=== PATIENT | female | born 1950 ===

== ENCOUNTER 2021-02-03 21:35 | Emergency (ER) | payer OTHER ==
[~2021-02-03] VITALS: Ht 157.5 cm; Wt 81.6 kg
[2021-02-03 21:37] VITALS: BP 100/69
[2021-02-03] MEDS ORDERED: methylPREDNISolone SOD SUCC 125 MG/2 ML VL IM ONE (22:00)
[2021-02-03] MEDS ORDERED: diphenhdrAMINE HCL 50 MG/1 ML VL IM ONE (22:00)
== END 2021-02-04 00:06 | disposition home or self-care (01) ==
LOC: ER 21:35
DX: T78.40XA Allergy, unspecified, initial encounter (principal); R68.2 Dry mouth, unspecified; I10 Essential (primary) hypertension; E11.9 Type 2 diabetes mellitus without complications; Y92.89 Other specified places as the place of occurrence of the external cause
CPT/HCPCS: 82962; 96372; 99284; J1200; J2930